=== PATIENT | male | born 1975 | race Caucasian/White ===

== ENCOUNTER 2021-08-24 09:11 | Observation (INO) | payer OTHER ==
[2021-08-24] MEDS ORDERED: NITROGLYCERIN OINT 1 INCH/GM PACKET TOPICAL STA (09:38)
[2021-08-24] MEDS ORDERED: ASPIRIN 81 MG PO STA (09:38)
[2021-08-24] MEDS ORDERED: NITROGLYCERIN SL TABS 0.4 MG TAB SUBLINGUAL STA (09:38)
--- NOTE | 2021-08-24 09:41 | ED ---
General Adult HPI - General Chief complaint: Back Pain/Injury Stated complaint: lt arm/leg numbness, back pain Time Seen by Provider: 08/24/21 09:25 Source: patient, RN notes reviewed, old records reviewed Mode of arrival: ambulatory Limitations: no limitations - History of Present Illness Initial comments: This is a 46-year-old male who has a past medical history significant for smoking and a strong family history of heart disease. Patient comes in today complaining of left-sided back pain and now is into his chest. Patient states is a squeezing sensation he also makes him short of breath. Patient states exertion also seems to make the pain worse. Patient states that occasionally there will be a sharp pain in addition to the squeezing pain. Patient denies any swelling to the legs or calf tenderness. Patient also states occasionally he has been lightheaded. Patient states the symptoms started approximately one week ago. Patient states he is smoker's cough and that has not changed. Patient denies any fever chills per patient denies abdominal pain patient denies nausea vomiting or diarrhea. Patient denies any diaphoretic episodes. Patient states that he also had some tingling in his left hand and left leg but there was no loss of sensation in no loss of strength or control. - Related Data Allergies Allergy/AdvReac Type Severity Reaction Status Date / Time No Known Allergies Allergy Verified 08/24/21 09:26 Review of Systems ROS Statement: Those systems with pertinent positive or pertinent negative responses have been documented in the HPI. ROS Other: All systems not noted in ROS Statement are negative. Past Medical History Past Medical History: No Reported History History of Any Multi-Drug Resistant Organisms: None Reported Past Surgical History: No Surgical Hx Reported Past Psychological History: Anxiety, Depression Smoking Status: Current every day smoker Past Alcohol Use History: None Reported Past Drug Use History: None Reported General Exam - General Exam Comments Initial Comments: GENERAL: Patient is well-developed and well-nourished. Patient is nontoxic and well- hydrated and is in mild distress. ENT: Neck is soft and supple. No significant lymphadenopathy is noted. Oropharynx is clear. Moist mucous membranes. Neck has full range of motion without eliciting any pain. EYES: The sclera were anicteric and conjunctiva were pink and moist. Extraocular movements were intact and pupils were equal round and reactive to light. Eyelids were unremarkable. PULMONARY: Unlabored respirations. Good breath sounds bilaterally. No audible rales rhonchi or wheezing was noted. CARDIOVASCULAR: There is a regular rate and rhythm without any murmurs gallops or rubs. ABDOMEN: Soft and nontender with normal bowel sounds. SKIN: Skin is clear with no lesions or rashes and otherwise unremarkable. NEUROLOGIC: Patient is alert and oriented x3. Cranial nerves II through XII are grossly intact. Motor and sensory are also intact. Normal speech, volume and content. Symmetrical smile. MUSCULOSKELETAL: Normal extremities with adequate strength and full range of motion. No lower extremity swelling or edema. No calf tenderness. Back pain was not reproducible with palpation LYMPHATICS: No significant lymphadenopathy is noted PSYCHIATRIC: Normal psychiatric evaluation. Limitations: no limitations Course Vital Signs 08/24/21 08/24/21 09:23 10:26 Temperature 98.2 F Pulse Rate 85 Respiratory 16 18 Rate Blood Pressure 131/68 O2 Sat by Pulse 98 Oximetry Medical Decision Making - Medical Decision Making EKG shows normal sinus rhythm at 76 bpm ID interval 128 QRS 70 QT interval 370 QTC is 416. Patient's EKG shows no ST segment elevation or depression. Chest x-ray shows no acute abnormalities. I spoke with the patient about his symptoms and he is very concerned because he has a strong family history of people having heart problems in their 40s. Patient states [facility] is [facility] I admitted him I wrote admitting orders I consult cardiology. - Lab Data Result diagrams: 08/24/21 10:40 08/24/21 10:40 Lab Results 08/24/21 08/24/21 08/24/21 Range/Units 10:40 10:40 10:40 WBC 5.8 (3.8-10.6) k/uL RBC 5.04 (4.30-5.90) m/uL Hgb 15.5 (13.0-17.5) gm/dL Hct 46.3 (39.0-53.0) % MCV 91.8 (80.0-100.0) fL MCH 30.7 (25.0-35.0) pg MCHC 33.4 (31.0-37.0) g/dL RDW 11.9 (11.5-15.5) % Plt Count 204 (150-450) k/uL MPV 7.7 Neutrophils % 76 % Lymphocytes % 14 % Monocytes % 5 % Eosinophils % 2 % Basophils % 1 % Neutrophils # 4.4 (1.3-7.7) k/uL Lymphocytes # 0.8 L (1.0-4.8) k/uL Monocytes # 0.3 (0-1.0) k/uL Eosinophils # 0.1 (0-0.7) k/uL Basophils # 0.1 (0-0.2) k/uL PT 9.7 (9.0-12.0) sec INR 0.9 (<1.2) APTT 26.5 (22.0-30.0) sec D-Dimer 0.32 (<0.60) mg/L FEU Sodium 141 (137-145) mmol/L Potassium 4.4 (3.5-5.1) mmol/L Chloride 107 (98-107) mmol/L Carbon Dioxide 28 (22-30) mmol/L Anion Gap 6 mmol/L BUN 11 (9-20) mg/dL Creatinine 0.69 (0.66-1.25) mg/dL Est GFR (CKD-EPI)AfAm >90 (>60 ml/min/1.73 sqM) Est GFR (CKD-EPI)NonAf >90 (>60 ml/min/1.73 sqM) Glucose 92 (74-99) mg/dL Calcium 9.7 (8.4-10.2) mg/dL Magnesium 2.0 (1.6-2.3) mg/dL Total Bilirubin 0.6 (0.2-1.3) mg/dL AST 22 (17-59) U/L ALT 11 (4-49) U/L Alkaline Phosphatase 58 (38-126) U/L Troponin I (0.000-0.034) ng/mL Total Protein 7.0 (6.3-8.2) g/dL Albumin 4.4 (3.5-5.0) g/dL Coronavirus (PCR) (Not Detectd) 08/24/21 08/24/21 Range/Units 10:40 10:40 WBC (3.8-10.6) k/uL RBC (4.30-5.90) m/uL Hgb (13.0-17.5) gm/dL Hct (39.0-53.0) % MCV (80.0-100.0) fL MCH (25.0-35.0) pg MCHC (31.0-37.0) g/dL RDW (11.5-15.5) % Plt Count (150-450) k/uL MPV Neutrophils % % Lymphocytes % % Monocytes % % Eosinophils % % Basophils % % Neutrophils # (1.3-7.7) k/uL Lymphocytes # (1.0-4.8) k/uL Monocytes # (0-1.0) k/uL Eosinophils # (0-0.7) k/uL Basophils # (0-0.2) k/uL PT (9.0-12.0) sec INR (<1.2) APTT (22.0-30.0) sec D-Dimer (<0.60) mg/L FEU Sodium (137-145) mmol/L Potassium (3.5-5.1) mmol/L Chloride (98-107) mmol/L Carbon Dioxide (22-30) mmol/L Anion Gap mmol/L BUN (9-20) mg/dL Creatinine (0.66-1.25) mg/dL Est GFR (CKD-EPI)AfAm (>60 ml/min/1.73 sqM) Est GFR (CKD-EPI)NonAf (>60 ml/min/1.73 sqM) Glucose (74-99) mg/dL Calcium (8.4-10.2) mg/dL Magnesium (1.6-2.3) mg/dL Total Bilirubin (0.2-1.3) mg/dL AST (17-59) U/L ALT (4-49) U/L Alkaline Phosphatase (38-126) U/L Troponin I <0.012 (0.000-0.034) ng/mL Total Protein (6.3-8.2) g/dL Albumin (3.5-5.0) g/dL Coronavirus (PCR) Not Detected (Not Detectd) Disposition Clinical Impression: Chest pain, Thoracic back pain Disposition: ADMITTED IP TO THIS [facility] Referrals: None,Stated [Primary Care Provider] - 1-2 days Time of Disposition: 12:11
[2021-08-24 10:49] LABS: Basophils # (A) 0.1 k/uL (0-0.2); Basophils % (A) 1 %; Eosinophils # (A) 0.1 k/uL (0-0.7); Eosinophils % (A) 2 %; HCT 46.3 % (39.0-53.0); HGB 15.5 gm/dL (13.0-17.5); Lymphocytes # (A) 0.8 k/uL (1.0-4.8); Lymphocytes % (A) 14 %; MCH 30.7 pg (25.0-35.0); MCHC 33.4 g/dL (31.0-37.0); MCV 91.8 fL (80.0-100.0); Mean Platelet Volume 7.7; Monocytes # (A) 0.3 k/uL (0-1.0); Monocytes % (A) 5 %; Neutrophils # (A) 4.4 k/uL (1.3-7.7); Neutrophils % (A) 76 %; Platelet Count 204 k/uL (150-450); RBC 5.04 m/uL (4.30-5.90); RDW 11.9 % (11.5-15.5); WBC 5.8 k/uL (3.8-10.6)
[2021-08-24 11:09] LABS: INR 0.9 (<1.2); Partial Thromboplastin Time 26.5 sec (22.0-30.0); Prothrombin Time 9.7 sec (9.0-12.0)
[2021-08-24 11:10] LABS: ALT 11 U/L (4-49); AST 22 U/L (17-59); African American GFR (CKD) >90 (>60 ml/min/1.73 sqM); Albumin 4.4 g/dL (3.5-5.0); Alkaline Phosphatase 58 U/L (38-126); Anion Gap 6 mmol/L; Blood Urea Nitrogen 11 mg/dL (9-20); Calcium 9.7 mg/dL (8.4-10.2); Carbon Dioxide 28 mmol/L (22-30); Chloride 107 mmol/L (98-107); Glucose 92 mg/dL (74-99); Non-African American GFR(CKD) >90 (>60 ml/min/1.73 sqM); Potassium 4.4 mmol/L (3.5-5.1); Sodium 141 mmol/L (137-145); Total Bilirubin 0.6 mg/dL (0.2-1.3)
--- NOTE | 2021-08-24 11:24 | XR ---
EXAMINATION TYPE: XR chest 2V DATE OF EXAM: 08/24/2021 COMPARISON: NONE HISTORY: Chest pain. TECHNIQUE: Frontal and lateral views of the chest are obtained. FINDINGS: There is no focal air space opacity, pleural effusion, or pneumothorax seen. The cardiac silhouette size is within normal limits. The osseous structures are intact. Overlying EKG leads. IMPRESSION: No acute cardiopulmonary process.
[2021-08-24] MEDS ORDERED: NITROGLYCERIN SL TABS 0.4 MG TAB SUBLINGUAL PRN (12:12)
[2021-08-24] MEDS ORDERED: ACETAMINOPHEN TAB 325 MG TAB PO PRN (17:12)
[2021-08-24] MEDS: NITROGLYCERIN OINT 1 INCH/GM PACKET TOPICAL SCH (17:37)
--- NOTE | 2021-08-24 20:08 | P.HPIM ---
History of Present Illness H&P Date: 08/24/21 Chief Complaint: Back pain/arm and leg numbness 46-year-old male who has a past medical history significant for smoking and a strong family history of heart disease. Patient comes in today complaining of left-sided back pain and now is into his chest. Patient states is a squeezing sensation he also makes him short of breath. Patient states exertion also seems to make the pain worse. Patient states that occasionally there will be a sharp pain in addition to the squeezing pain. Patient denies any swelling to the legs or calf tenderness. Patient also states occasionally he has been lightheaded. Patient states the symptoms started approximately one week ago. Patient states he is smoker's cough and that has not changed. Patient denies any fever chills per patient denies abdominal pain patient denies nausea vomiting or diarrhea. Patient denies any diaphoretic episodes. Patient states that he also had some tingling in his left hand and left leg but there was no loss of sensation in no loss of strength or control. EKG shows normal sinus rhythm at 76 bpm [place] interval 128 QRS 70 QT interval 370 QTC is 416. Patient's EKG shows no ST segment elevation or depression Chest x-ray shows no acute abnormalities Review of Systems REVIEW OF SYSTEMS: CONSTITUTIONAL: No fever, no malaise, no fatigue. HEENT: No recent visual problems or hearing problems. Denied any sore throat. CARDIOVASCULAR: No chest pain, orthopnea, PND, no palpitations, no syncope. PULMONARY: No shortness of breath, no cough, no hemoptysis. GASTROINTESTINAL: No diarrhea, no nausea, no vomiting, no abdominal pain. NEUROLOGICAL: No headaches, no weakness, no numbness. HEMATOLOGICAL: Denies any bleeding or petechiae. GENITOURINARY: Denies any burning micturition, frequency, or urgency. MUSCULOSKELETAL/RHEUMATOLOGICAL: Denies any joint pain, swelling, or any muscle pain. ENDOCRINE: Denies any polyuria or polydipsia. The rest of the 14-point review of systems is negative. Past Medical History Past Medical History: No Reported History History of Any Multi-Drug Resistant Organisms: None Reported Past Surgical History: No Surgical Hx Reported Past Psychological History: Anxiety, Depression Smoking Status: Current every day smoker Past Alcohol Use History: None Reported Past Drug Use History: None Reported - Past Family History Mother Family Medical History: Chest Pain / Angina, Myocardial Infarction (NM) Father Family Medical History: Unable to Obtain Medications and Allergies Home Medications Medication Instructions Recorded Confirmed Type No Known Home Medications 08/24/21 08/24/21 History Allergies Allergy/AdvReac Type Severity Reaction Status Date / Time No Known Allergies Allergy Verified 08/24/21 12:20 Physical Exam Vitals: Vital Signs Temp Pulse Resp BP Pulse Ox 08/24/21 13:14 98.2 F 71 18 103/62 98 08/24/21 12:00 71 18 103/62 98 08/24/21 11:00 72 18 98 08/24/21 10:26 18 08/24/21 09:23 98.2 F 85 16 131/68 98 Intake and Output 08/23/21 08/24/21 08/24/21 22:59 06:59 14:59 Other: Weight 70.307 kg - Constitutional General appearance: Present: average body habitus, cooperative, no acute distress - EENT Eyes: Present: anicteric sclerae, EOMI, PERRLA, normal appearance ENT: Present: hearing grossly normal, normal oropharynx Ears: bilateral: normal - Neck Neck: Present: normal ROM. Absent: lymphadenopathy, rigidity, thyromegaly Carotids: negative: bruit present Thyroid: bilateral: normal size, negative: enlarged, nodule - Respiratory Respiratory: bilateral: CTA, negative: rales, rhonchi, wheezing - Cardiovascular Rhythm: regular Heart sounds: normal: S1, S2 Abnormal Heart Sounds: Absent: systolic murmur, diastolic murmur - Gastrointestinal General gastrointestinal: Present: normal bowel sounds, soft. Absent: distended, organomegaly, tenderness - Genitourinary Genitourinary Comment(s): deferred - Integumentary Integumentary: Present: normal turgor. Absent: jaundiced, rash, ulcer - Neurologic Neurologic: Present: CNII-XII intact. Absent: focal deficits - Musculoskeletal Musculoskeletal: Present: gait normal, strength equal bilaterally - Psychiatric Psychiatric: Present: A&O x's 3, appropriate affect, intact judgment & insight Results CBC & Chem 7: 08/24/21 10:40 08/24/21 10:40 Labs: Abnormal Lab Results - Last 24 Hours (Table) 08/24/21 Range/Units 10:40 Lymphocytes # 0.8 L (1.0-4.8) k/uL Assessment and Plan Assessment: 1. Chest pain; rule out acute coronary syndrome - We will admit patient to telemetry and monitor EKG and trend troponin; consult cardiology 2. History of anxiety/depression; currently not on any treatment 3. Chronic tobacco use DVT prophylaxis; SCDs CODE STATUS; full code
[2021-08-25] MEDS: NITROGLYCERIN OINT 1 INCH/GM PACKET TOPICAL SCH ×2 (00:58→06:15)
[2021-08-25 07:39] VITALS: BP 102/50; PULSE 87; TEMP 98.6
[2021-08-25 08:05] VITALS: RESP 17
[2021-08-25] MEDS ORDERED: ASPIRIN 325 MG TAB PO SCH (09:00)
[2021-08-25 12:08] LABS: Chol/HDL Ratio 3.25 Ratio; HDL Cholesterol 38.1 mg/dL (40.00-60.00); Triglycerides 64.6 mg/dL (0.00-149.00); VLDL Calculation 12.92 mg/dL (5.00-40.00)
--- NOTE | 2021-08-25 13:13 | CONS ---
CONSULTATION HISTORY: Juarez Styles is a 46-year-old gentleman with a family history of premature CAD, a smoker of more than 1-1/2 packs daily. He comes into the hospital with pain in his left upper back. He has not had chest pain. The back pain is in the interscapular area where he has a muscle spasm. 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 His EKGs and troponins are unremarkable. He is resting comfortably without symptoms. PAST MEDICAL HISTORY: Unremarkable for any CAD, hypertension or diabetes. PHYSICAL EXAMINATION: On examination, blood pressure is 110/70, pulse rate is 74 per minute. HEENT unremarkable fundus was not examined by me. Neck is supple. No JVD. I do not hear a carotid bruit. There is no thyromegaly. Heart exam reveals S1, S2 heard normally without a rub murmur or gallop. Lungs are clear. Abdomen is soft, nontender. Lower extremities reveal normal pulses. No edema. Central nervous system is normal. EKG revealed sinus mechanism, no acute changes. LAB DATA: Reveals unremarkable troponins. IMPRESSION: 1. Musculoskeletal back pain. 2. No evidence of chest pain. 3. History of smoking. 4. History of tobacco abuse. RECOMMENDATIONS: I am recommending that he should quit smoking, use nonsteroidals for pain and some warm compresses. No intervention necessary. Patient does not have chest pain but has significant risk factors. he can be discharged and I will see him in the office and arrange for a stress test as an outpatient. Thank you very much for the consult. MMODL / IJN: [id number] /
== END 2021-08-25 12:52 | disposition home or self-care (01) ==
LOC: EC 09:11 → 6NMEDSUR 12:12
PROVIDERS: ADMIT Internal Medicine; ATTEND Internal Medicine
DX: R07.9 Chest pain, unspecified (principal); M54.6 Pain in thoracic spine; M62.838 Other muscle spasm; X50.0XXA Overexertion from strenuous movement or load, initial encounter; Z20.822 Contact with and (suspected) exposure to COVID-19; R20.0 Anesthesia of skin; R20.2 Paresthesia of skin; R42 Dizziness and giddiness; F17.210 Nicotine dependence, cigarettes, uncomplicated; J41.0 Simple chronic bronchitis; F41.9 Anxiety disorder, unspecified; F32.9 Major depressive disorder, single episode, unspecified; Z82.49 Family history of ischemic heart disease and other diseases of the circulatory system
CPT/HCPCS: 99285; 36415; 93005; 85379; 80061; 80053; 83735; 84484; 85025; 85610; 85730; 87635; 71046; G0378 ×2